=== PATIENT | male | born 1950 | race Asian ===

== ENCOUNTER 2019-06-02 17:41 | Inpatient (IN) | payer MEDICARE, OTHER ==
[~2019-06-02] VITALS: Ht 175.3 cm; Wt 72.6 kg
[2019-06-02 18:51] LABS: Basophils # (auto) 0 10 ^3/uL (0-0.2); Basophils % (auto) 0.2 % (0.0-2.0); Eosinophils # (auto) 0 10 ^3/uL (0-0.8); Eosinophils % (auto) 0.2 % (0.0-7.0); Nucleated Red Blood Cells % 0.1 %; Red Cell Distribution Width 13.3 % (11.8-14.3)
[2019-06-02 18:53] LABS: Hematocrit 50.8 % (41.0-53.0); Hemoglobin 17.9 g/dL (13.5-17.5); Lymphocytes # (auto) 1.1 10 ^3/uL (0.4-5.4); Lymphocytes % (auto) 21.3 % (10.0-50.0); Mean Corpuscular Hemoglobin 32.8 pg (28.0-32.0); Mean Corpuscular Hgb Conc. 35.2 g/dL (32.0-36.0); Monocytes # (auto) 0.6 10 ^3/uL (0-1.3); Monocytes % (auto) 12.6 % (0.0-12.0); Neutrophils # (auto) 3.3 10 ^3/uL (1.6-8.6); Neutrophils % (auto) 65.7 % (37.0-80.0); Platelet Count (auto) 252 10^3/uL (140-450); Red Blood Cells 5.47 10^6/uL (4.5-5.90)
[2019-06-02 19:04] LABS: Calcium 8.5 mg/dL (8.5-10.1); Potassium 4.1 mmol/L (3.5-5.1)
[2019-06-02 19:08] LABS: BUN/Creatinine Ratio 14.3; Bilirubin, Total 0.4 mg/dL (0.2-1.0); Total Protein 8.3 g/dL (6.4-8.2)
[2019-06-02] MEDS ORDERED: levoFLOXacin 500MG 100 ML IV ONE (21:30)
[2019-06-02] MEDS ORDERED: ONDANSETRON HCL 4 MG/2 ML VIAL IV PRN (21:30)
[2019-06-02] MEDS ORDERED: ACETAMINOPHEN 325 MG TAB PO PRN (21:30)
[2019-06-02] MEDS ORDERED: TEMAZEPAM 15 MG CAP PO PRN (21:30)
[2019-06-02] MEDS: FAMOTIDINE 20 MG TAB PO SCH (22:13)
[2019-06-03 00:55] VITALS: BP 105/72
--- NOTE | 2019-06-03 00:55 | NUR ---
MS admit from ER ANKIT TAFOYA admitted to tele/MS after SBAR received. Patient oriented to Fabiola Joaquin, primary RN, unit, room, bed, and unit policies regarding patient care and visiting hours. Patient weighed by bedscale and encouraged to call if they need something. All questions and concerns addressed, patient verbalized understanding. Note:
[2019-06-03 05:00] VITALS: BP 121/75
--- NOTE | 2019-06-03 07:22 | NUR ---
Opening Shift Note Assumed care of patient, awake and alert. No S/S of distress/SOB or pain. Droplet/airborne precautions in place. Instructed on POC and to call for assist PRN, will continue to monitor for changes Q1hr and PRN.
[2019-06-03 08:00] VITALS: BP 127/71
[2019-06-03] MEDS: FAMOTIDINE 20 MG TAB PO SCH ×2 (09:29→22:03)
[2019-06-03] MEDS: levoFLOXacin 500MG 100 ML IV SCH (09:29)
[2019-06-03] MEDS ORDERED: ENOXAPARIN SOD 40 MG/0.4 ML SYRINGE SC SCH (10:00)
--- NOTE | 2019-06-03 10:32 | NUR ---
ATTEMPTED TO DRAW BLOOD. UNABLE TO OBTAIN SPECIMEN
--- NOTE | 2019-06-03 11:15 | NUR ---
ATTEMPTED TO DRAW BLOOD. UNABLE TO OBTAIN SPECIMEN
--- NOTE | 2019-06-03 11:22 | NUR ---
ROUNDING MD Girma ALDRICH AT BEDSIDE. ALL QUESTIONS AND CONCERNS ADDRESSED AT THIS TIME.
[2019-06-03] MEDS ORDERED: ASCORBIC ACID 500 MG TAB PO ONE (11:45)
[2019-06-03] MEDS ORDERED: ZINC SULFATE 220mg CAP or TAB PO ONE (11:45)
[2019-06-03 12:00] VITALS: BP 123/71
--- NOTE | 2019-06-03 12:00 | NUR ---
IV insertion IV access obtained, via clean sterile technique by inserting 22 gauge catheter at LEFT HAND after 2 attempt(s). IV secured properly. No trauma to site. Patient tolerated well. IV removal IV DC'd with clean sterile technique, catheter fully intact. Pressure dressing applied to site. Patient tolerated well.
[2019-06-03 12:55] LABS: Basophils # (auto) 0 10 ^3/uL (0-0.2); Basophils % (auto) 0.3 % (0.0-2.0); Eosinophils # (auto) 0 10 ^3/uL (0-0.8); Eosinophils % (auto) 0.1 % (0.0-7.0); Hematocrit 50.9 % (41.0-53.0); Hemoglobin 17.3 g/dL (13.5-17.5); Lymphocytes # (auto) 1.1 10 ^3/uL (0.4-5.4); Lymphocytes % (auto) 17.1 % (10.0-50.0); Mean Corpuscular Hemoglobin 31.4 pg (28.0-32.0); Mean Corpuscular Volume 92.4 fL (80.0-100.0); Monocytes # (auto) 0.7 10 ^3/uL (0-1.3); Monocytes % (auto) 11.8 % (0.0-12.0); Neutrophils # (auto) 4.4 10 ^3/uL (1.6-8.6); Neutrophils % (auto) 70.7 % (37.0-80.0); Nucleated Red Blood Cells % 0.1 %; Platelet Count (auto) 261 10^3/uL (140-450); Red Blood Cells 5.51 10^6/uL (4.5-5.90); Red Cell Distribution Width 13.3 % (11.8-14.3); White Blood Cell 6.3 10^3/uL (4.4-10.8)
[2019-06-03 13:05] LABS: BUN/Creatinine Ratio 11.3; Calcium 8.7 mg/dL (8.5-10.1)
[2019-06-03 17:00] VITALS: BP 132/81
--- NOTE | 2019-06-03 19:05 | NUR ---
Opening Shift Note Received report from master Valero RN. Assumed care of patient, awake and alert. No S/S of distress/SOB or pain. Patient is Droplet/airborne. Instructed on POC and to call for assist PRN, will continue to monitor for changes Q1hr and PRN. Bed placed in lowest position and call light within reach.
--- NOTE | 2019-06-04 00:35 | NUR ---
Patient is resting in bed, with eyes closed, no distress noted and no coughing noted with oxygen saturation of 94% on room air. temperature is 98.0
[2019-06-04 03:21] VITALS: BP 117/76
[2019-06-04 05:40] VITALS: BP 119/72
--- NOTE | 2019-06-04 08:15 | NUR ---
Opening Shift Note Assumed care of patient, awake and alert. No S/S of distress/SOB on room air and no pain. Instructed on POC and to call for assist PRN, will continue to monitor for changes Q1hr and PRN. Bed in low and locked position, rails up x2, n-slip socks on.
[2019-06-04 09:00] VITALS: BP 129/75
[2019-06-04] MEDS ORDERED: ASCORBIC ACID 500 MG TAB PO SCH (10:00)
[2019-06-04] MEDS ORDERED: ZINC SULFATE 220mg CAP or TAB PO SCH (10:00)
[2019-06-04] MEDS: levoFLOXacin 500MG 100 ML IV SCH (10:42)
[2019-06-04] MEDS: FAMOTIDINE 20 MG TAB PO SCH (10:42)
--- NOTE | 2019-06-04 11:58 | NUR ---
DR ALDRICH AT NURSES STATION PLAN TO D/C IF NEGATIVE FOR COVID-19
[2019-06-04 12:00] VITALS: BP 124/74
[2019-06-04 16:41] VITALS: BP 124/74
--- NOTE | 2019-06-04 17:20 | NUR ---
NOTIFIED NEGATIVE COVID-19 Addendum: 06/04/19 at 1721 by BIRDIE DUVALL RN RN TIME STAMPED FOR 1700 PATIENT TO BE DISCHARGED, PAPERWORK COMPLETED AND PRINTED, PATIENT CALLING TO PICK HIM UP.
--- NOTE | 2019-06-04 17:21 | NUR ---
DISCHARGE Discharge instructions given as ordered. Encourage to follow up with PMD as instructed. All questions and concerns addressed. Patient verbalized understanding. Medication reconciliation form completed and copy given to patient. IV removed with catheter intact, pressure dressing applied. Patient taken to vehicle via wheelchair with all personal belongings, accompanied by staff. No distress noted at time of departure.
== END 2019-06-04 17:18 | disposition home or self-care (01) | DRG 194 ==
LOC: EDBD 17:41 → ER 17:41 → OVERFLOW 17:42 → EAST 23:28
PROVIDERS: ADMIT Nurse Practitioner; ATTEND Internal Medicine
DX: J12.89 Other viral pneumonia (principal); B19.10 Unspecified viral hepatitis B without hepatic coma; J02.9 Acute pharyngitis, unspecified; R50.9 Fever, unspecified
CPT/HCPCS: 36415; 71045; 80048; 80053; 83605; 85025; 87040; 87070; 87804; 87880; 96365; 96372; G0378; J1956